=== PATIENT | male | born 1980 | race Caucasian/White ===

== ENCOUNTER 2021-09-20 05:27 | Emergency (ER) | payer SELFPAY ==
[~2021-09-20] VITALS: Ht 170.2 cm; Wt 77.0 kg
[2021-09-20 06:00] VITALS: BP 132/72
[2021-09-20] MEDS ORDERED: HYDROCODONE/ACETAMINOPHEN 5/325MG TABLET PO ONE (06:00)
[2021-09-20 06:08] LABS: BASOPHILS % 0.5 % (0.0-2.0); EOSINOPHILS % 2.5 % (0.0-5.0); HEMATOCRIT. 47.5 % (42.0-52.0); HEMOGLOBIN. 16.2 g/dL (14.0-18.0); LYMPHOCYTES % 22.6 % (20.0-50.0); MEAN CORPUSCULAR HEMOGLOBIN 31.9 pg (28.0-32.0); MEAN CORPUSCULAR VOLUME 93.2 fL (80.0-94.0); MEAN PLATELET VOLUME 8.4 fl (7.4-10.4); MONOCYTES % 5.5 % (2.0-8.0); NEUTROPHILS % 68.9 % (40.0-76.0); PLATELET 245 x1000/uL (130-400); RED CELL DISTRIBUTION WIDTH 13.7 % (11.6-14.6)
[2021-09-20 06:15] LABS: CHLORIDE 111 mEq/L (98-107)
[2021-09-20] MEDS ORDERED: HYDR-4001 MT (06:51)
[2021-09-20] MEDS ORDERED: LIDO1ADH5 TP (06:51)
== END 2021-09-20 07:02 | disposition home or self-care (01) ==
LOC: EDBD 05:46 → ER 05:46
DX: S20.211A Contusion of right front wall of thorax, initial encounter (principal); R07.89 Other chest pain; S80.812A Abrasion, left lower leg, initial encounter; V49.49XA Driver injured in collision with other motor vehicles in traffic accident, initial encounter; Y93.89 Activity, other specified; Y92.488 Other paved roadways as the place of occurrence of the external cause
CPT/HCPCS: 36415; 71101; 73590; 80053; 85025; 99284